=== PATIENT | female | born 1980 | race Asian ===

== ENCOUNTER 2017-08-09 16:23 | Outpatient (CLI) | payer OTHER, BC | END 2017-08-09 22:47 | disposition home or self-care (01) | LOC: RAD 16:23 | DX: R05 Cough (principal) ==

== ENCOUNTER 2018-04-11 16:41 | Outpatient (CLI) | payer OTHER, BC | END 2018-04-11 20:07 | disposition home or self-care (01) | LOC: RAD 16:41 | DX: R05 Cough (principal) ==

== ENCOUNTER 2018-07-27 08:22 | Outpatient (CLI) | payer OTHER, BC | END 2018-07-27 23:27 | disposition home or self-care (01) | LOC: LABW 08:22 | DX: L83 Acanthosis nigricans (principal); Z79.899 Other long term (current) drug therapy | CPT/HCPCS: 36415; 82947; 83036; 83525; 84681 ==

== ENCOUNTER 2021-07-23 09:59 | Outpatient (CLI) | payer OTHER | END 2021-07-23 19:11 | disposition home or self-care (01) | LOC: MAMMO 09:59 | PROVIDERS: ATTEND Obstetrics & Gynecology | DX: Z12.31 Encounter for screening mammogram for malignant neoplasm of breast (principal) ==

== ENCOUNTER 2022-07-28 08:22 | Outpatient (CLI) | payer OTHER | END 2022-07-28 18:53 | disposition home or self-care (01) | LOC: MAMMO 08:22 | PROVIDERS: ATTEND Obstetrics & Gynecology | DX: Z12.31 Encounter for screening mammogram for malignant neoplasm of breast (principal) ==